=== PATIENT | female | born 1960 | race Caucasian/White ===

== ENCOUNTER → 2018-06-26 | Outpatient (CLI) | payer OTHER | LOC: M.RAD 14:19 | DX: M25.512 Pain in left shoulder (principal); M19.012 Primary osteoarthritis, left shoulder ==

== ENCOUNTER 2018-09-06 19:48 | Emergency (ER) | payer OTHER ==
[~2018-09-06] VITALS: Ht 167.6 cm; Wt 90.7 kg
[2018-09-06] MEDS ORDERED: XANAX1 MG (20:07)
[2018-09-06] MEDS ORDERED: TRAZODONE HCL50 MG (20:07)
[2018-09-06] MEDS ORDERED: LEFLUNOMIDE20 MG (20:08)
[2018-09-06] MEDS ORDERED: GLUCOPHAGE XR750 MG (20:08)
[2018-09-06] MEDS ORDERED: LIPITOR10 MG (20:08)
[2018-09-06] MEDS ORDERED: MOBIC7.5 MG (20:09)
[2018-09-06] MEDS ORDERED: LITHIUM CARBON300 M6 (20:09)
[2018-09-06] MEDS ORDERED: GABAPENTIN 100100 MG (20:10)
[2018-09-06] MEDS ORDERED: OXYBUTYNIN 5 MG5 M2 (20:10)
[2018-09-06] MEDS ORDERED: ZYPREXA 10 MG T10 MG (20:11)
[2018-09-06] MEDS ORDERED: SYNTHROID150 MCG (20:11)
[2018-09-06] MEDS ORDERED: NORCO 7.5-3251 EACH (20:12)
[2018-09-06] MEDS ORDERED: TRIAMCINOLONE A80 G2 (20:13)
[2018-09-06] MEDS ORDERED: RANITIDINE HCL150 M1 (20:13)
[2018-09-06] MEDS ORDERED: FLUOROPLEX30 GM TOP (20:27)
[2018-09-06 20:30] VITALS: BP 132/74
== END 2018-09-06 20:48 | disposition home or self-care (01) ==
LOC: M.ERS 19:48
DX: L59.0 Erythema ab igne [dermatitis ab igne] (principal); E11.9 Type 2 diabetes mellitus without complications; M06.9 Rheumatoid arthritis, unspecified; M79.7 Fibromyalgia; F31.9 Bipolar disorder, unspecified; F17.210 Nicotine dependence, cigarettes, uncomplicated; Z88.2 Allergy status to sulfonamides